=== PATIENT | male | born 1950 | race Caucasian/White ===

== ENCOUNTER → 2016-10-11 | Outpatient (CLI) | payer MEDICARE, BC ==
--- NOTE | 2016-10-11 08:17 | CT ---
EXAMINATION TYPE: CT brain wo/w con DATE OF EXAM: 10/11/2016 COMPARISON: NONE HISTORY: Patient complains of syncopal episode. CT DLP: 1835.7 mGycm Automated exposure control for dose reduction was used. CONTRAST: CT scan of the head is performed without and with IV Contrast, patient injected with 100 mL of Omnipa que 300. FINDINGS: There is no evidence for acute intracranial hemorrhage, acute ischemic change, mass, mass effect, mid line shift, or extra-axial fluid collection. No hydrocephalus. Graham-white matter differentiation is m aintained. There is no abnormal enhancing mass. Dural venous sinuses are patent. There are mild patchy subcortical and deep white matter hypodensities. 9 mm partially calcified scalp lesion along the right frontal region. The globes are intact. Minimal mucosal thickening within the ethmoid air cells are well-pneumatized. IMPRESSION: 1. No acute intracranial abnormality seen. 2. No enhancing intracranial lesions. Mild changes of chronic small vessel ischemic disease. 3. A 9 mm partially calcified right frontal scalp lesion probably represents a sebaceous cyst. Correl ate clinically.
== END | disposition home or self-care (01) ==
LOC: RADCTMAIN 06:51
PROVIDERS: ATTEND Family Medicine
DX: I67.82 Cerebral ischemia (principal); G93.89 Other specified disorders of brain; E16.2 Hypoglycemia, unspecified
CPT/HCPCS: 70470; Q9967

== ENCOUNTER 2017-05-15 11:46 | Emergency (ER) | payer MEDICARE, BC ==
[2017-05-15 11:54] VITALS: TEMP 97.7
--- NOTE | 2017-05-15 12:48 | ED ---
General Adult HPI - General Chief complaint: Abdominal Pain Stated complaint: Constipation Time Seen by Provider: 05/15/17 12:16 Source: patient, EMS, RN notes reviewed Mode of arrival: EMS Limitations: no limitations - History of Present Illness Initial comments: Patient 66-year-old male who presents emergency room today by EMS, the chief complaint of constipation. Does admit that last bowel movement was 3 days ago was harder. Patient states he did take 2 stool softeners earlier today. EMS did give him some fentanyl for pain. He admits that he was feeling some pain and pressure to the rectum. Patient denies any other complaints. I did see the patient after he had immediate to the commode as he is feeling the urge that he went to have a bowel movement. Patient was able to have large bowel movement and is not having any pain at this time. Patient denies any other complaints or any other symptoms. States he feels much better and is completely symptom-free. Patient denies any recent fever, chills, shortness of breath, chest pain, back pain, nausea or vomiting, numbness or tingling, dysuria or hematuria, diarrhea, headaches or visual changes, or any other complaints. - Related Data Allergies Allergy/AdvReac Type Severity Reaction Status Date / Time No Known Allergies Allergy Verified 05/15/17 11:54 Review of Systems ROS Statement: Those systems with pertinent positive or pertinent negative responses have been documented in the HPI. ROS Other: All systems not noted in ROS Statement are negative. 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 Eye: Pupils are equal, round and reactive to light, extra-ocular movements are intact. No nystagmus. There is normal conjunctiva bilaterally. No signs of icterus. Ears, nose, mouth and throat: There are moist mucous membranes and no oral lesions. Neck: The neck is supple, there is no tenderness or JVD. Cardiovascular: There is a regular rate and rhythm. No murmur, rub or gallop is appreciated. Respiratory: Lungs are clear to auscultation, respirations are non-labored, breath sounds are equal. No wheezes, stridor, rales, or rhonchi. Gastrointestinal: Soft, non-distended, non-tender abdomen without masses or organomegaly noted. There is no rebound or guarding present. No CVA tenderness. Musculoskeletal: Normal ROM, no tenderness. Strength 5/5. Sensation intact. Pulses equal bilaterally 2+. Neurological: A&O x 3. CN II-XII intact, There are no obvious motor or sensory deficits. Coordination appears grossly intact. Speech is normal. Skin: Skin is warm and dry and no rashes or lesions are noted. Psychiatric: Cooperative, appropriate mood & affect, normal judgment. Limitations: no limitations Course Vital Signs 05/15/17 11:48 Temperature 97.7 F Pulse Rate 83 Respiratory 24 Rate Blood Pressure 144/84 O2 Sat by Pulse 93 L Oximetry Medical Decision Making - Medical Decision Making Patient was able have bowel movement here in emergency room. Patient denies any complaints at this time. States feels much better. Discharged home. Disposition Clinical Impression: Abdominal pain Disposition: HOME SELF-CARE Condition: Good Instructions: Constipation (ED) Additional Instructions: Please use stool softener as needed. Please follow-up family doctor return to emergency room for any other concerns. Referrals: None,Stated [Primary Care Provider] - 1-2 days Time of Disposition: 12:48
[2017-05-15 13:08] VITALS: BP 130/77; PULSE 87; RESP 18
== END 2017-05-15 13:08 | disposition home or self-care (01) ==
LOC: EC 11:46
DX: R10.9 Unspecified abdominal pain (principal); Z87.891 Personal history of nicotine dependence; Z79.01 Long term (current) use of anticoagulants
CPT/HCPCS: 99284

== ENCOUNTER 2017-10-08 14:42 | Emergency (ER) | payer MEDICARE, BC ==
--- NOTE | 2017-10-08 17:27 | ED ---
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 His concern possible clot is visiting nurse said that her swelling and she is concerned for this possibility. No trauma. No history of gout. Does have history of bilateral pedal edema. He reports that he is immobile and uses a Edward lift to change physicians from bed to chair. He normally does have his chair changing positions rapidly days that he keeps his feet elevated. He does have to use a CPAP machine at all times. Also is complaining of some ear pain and thinks that he may be irritated the ear canal while removing wax. - Related Data Home Medications Medication Instructions Recorded Confirmed Albuterol Sulfate [Proair Hfa] 1 - 2 puff INHALATION RT-Q6H PRN 05/15/17 Apixaban [Eliquis] 5 mg PO Q12H 05/15/17 10/08/17 Bisacodyl [Dulcolax] 15 mg PO DAILY PRN 05/15/17 10/08/17 Carvedilol [Coreg] 3.125 mg PO BID 05/15/17 10/08/17 Furosemide [Lasix] 20 mg PO DAILY 05/15/17 10/08/17 Insulin Glargine,Hum.rec.anlog 30 unit SQ HS 05/15/17 10/08/17 [Lantus Solostar] Insulin NPH Hum/Reg Insulin Hm See Protocol SQ AC-TID 05/15/17 10/08/17 [humuLIN 70/30 Kwikpen] Lisinopril [Zestril] 5 mg PO DAILY 05/15/17 10/08/17 Tiotropium [place] [Spiriva 2 spray INHALATION RT-DAILY 05/15/17 10/08/17 Respimat] Vits A,C,E/Lutein/Minerals 1 tab PO DAILY 05/15/17 10/08/17 [Ocuvite with Lutein Tablet] metFORMIN HCL [metFORMIN HCL ER] 1,000 mg PO BID 05/15/17 10/08/17 Allergies Allergy/AdvReac Type Severity Reaction Status Date / Time No Known Allergies Allergy Verified 10/08/17 18:03 Review of Systems ROS Statement: Those systems with pertinent positive or pertinent negative responses have been documented in the HPI. ROS Other: All systems not noted in ROS Statement are negative. 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 No distress. In his. Her left and it is wheelchair. He was wearing a CPAP machine. General: Well appearing, well nourished, in no distress. Oriented x 3, normal mood and affect . Ambulating without difficulty. Skin: Good turgor, no rash, unusual bruising or prominent lesions Hair: Normal texture and distribution. HEENT: Head: Normocephalic, atraumatic, no visible or palpable masses, depressions, or scaring. Eyes: Visual acuity intact, conjunctiva clear, sclera non-icteric, EOM intact, PERRL. Ears: EACs full of cerumen. Unable to identify TM. Nose: No external lesions, mucosa non-inflamed, septum and turbinates normal Mouth: Mucous membranes moist, no mucosal lesions. Teeth/Gums: No obvious caries or periodontal disease. No gingival inflammation or significant resorption. Pharynx: Mucosa non-inflamed, no tonsillar hypertrophy or exudate Neck: Supple, without lesions, bruits, or adenopathy, thyroid non-enlarged and non-tender Heart: No cardiomegaly or thrills; regular rate and rhythm, no murmur or gallop Lungs: Clear to auscultation and percussion Abdomen: Bowel sounds normal, no tenderness, organomegaly, masses, or hernia Extremities: She has bilateral pedal edema. Full range of motion in the toes and ankle. He does report tenderness over the medial malleolus. Musculoskeletal: Normal gait and station. No misalignment, asymmetry, crepitation, defects, tenderness, masses, effusions, decreased range of motion, instability, atrophy or abnormal strength or tone in the head, neck, spine, ribs , pelvis or extremities. Neurologic: CN 2-12 normal. Sensation to pain, touch, and proprioception normal. DTRs normal in upper and lower extremities. No pathologic reflexes. Limitations: no limitations Course Vital Signs 10/08/17 10/08/17 15:09 19:18 Temperature 98.5 F 97 F L Pulse Rate 82 72 Respiratory 24 20 Rate Blood Pressure 128/64 124/74 O2 Sat by Pulse 96 96 Oximetry Medical Decision Making - Medical Decision Making 58-year-old male. Alert and oriented. No significant distress. Concerned possibly about chronic right leg. He is immobile has to squarely. Patient does have some tightness over the right medial malleolus. He does have bilateral pedal edema likely dependent from sitting in his chair. Doesn't complains of ear cerumen impaction. I did use croup with the ear curet. There is some irritation. We'll put the Patient on Cipro drops for the ears for concern for possibility of future otitis externa. Discussed using deep breath drops and saline rinse to remove the wax in the future. - Radiology Data Radiology results: report reviewed US is negative for DVT. Disposition Clinical Impression: Bilateral impacted cerumen, Right ankle pain, Cerumen impaction, Bilateral edema of lower extremity Disposition: HOME SELF-CARE Condition: Good Instructions: Leg Edema (ED) Additional Instructions: He can take Motrin for pain. Keep the legs up and elevated. Use the drops in both ears from the abrasion in the ear canal. He can also purchase Debrox drops and places in her ear to help remove the cerumen in 3 days. Return to the emergency department if any alarming signs or symptoms occur. Follow-up with primary care provider. Is patient prescribed a controlled substance at d/c from ED?: No When asked, does pt state using other controlled substances?: No If prescribed controlled substance>3 days was MAPS reviewed?: No If opioid is for acute pain is fill amount 7 days or less?: No If Rx opioid, was Start Talking consent form obtained?: No Referrals: Mono Slaughter MD [Primary Care Provider] - 1-2 days Time of Disposition: 19:05
[2017-10-08] MEDS ORDERED: CIPROFLOXACIN 0.3% OPHTH SOLN 5 ML BTL BOTH EYES STA (17:28)
--- NOTE | 2017-10-08 18:58 | US ---
EXAMINATION TYPE: US venous doppler duplex LE RT DATE OF EXAM: 10/08/2017 4:27 PM COMPARISON: NONE CLINICAL HISTORY: 66-year-old male Pain. Right ankle pain. Hx of blood clots in bilateral legs and P E. On blood thinners. SIDE PERFORMED: Right TECHNIQUE: The lower extremity deep venous system is examined utilizing real time linear array sonog tiburcio with graded compression, doppler sonography and color-flow sonography. VESSELS IMAGED: External Iliac Vein (EIV) Common Femoral Vein Deep Femoral Vein Greater Saphenous Vein * Femoral Vein Popliteal Vein Small Saphenous Vein * Proximal Calf Veins (* superficial vessels) Right Leg: Negative for DVT. Edema noted posterior knee. IMPRESSION: No evidence for DVT within the right lower extremity imaged from the groin to the upper calf. The son ographer notes some subcutaneous edema posterior to the knee.
[2017-10-08 19:19] VITALS: BP 124/74; PULSE 72; RESP 20; TEMP 97
== END 2017-10-08 19:19 | disposition home or self-care (01) ==
LOC: EC 14:42
DX: R60.0 Localized edema (principal); M25.571 Pain in right ankle and joints of right foot; H61.23 Impacted cerumen, bilateral; E11.9 Type 2 diabetes mellitus without complications; E78.5 Hyperlipidemia, unspecified; I10 Essential (primary) hypertension; Z87.891 Personal history of nicotine dependence; Z99.89 Dependence on other enabling machines and devices; Z79.01 Long term (current) use of anticoagulants; Z79.4 Long term (current) use of insulin; Z79.899 Other long term (current) drug therapy
CPT/HCPCS: 99284

== ENCOUNTER 2018-03-11 08:56 | Emergency (ER) | payer MEDICARE, BC ==
[2018-03-11 09:06] VITALS: TEMP 97.4
[2018-03-11] MEDS ORDERED: IPRATROPIUM-ALBUTEROL 3 ML NEB INHALATION STA (09:13)
--- NOTE | 2018-03-11 09:13 | ED ---
SOB HPI - General Chief Complaint: Shortness of Breath Stated Complaint: ALEX Time Seen by Provider: 03/11/18 09:06 Source: patient, family, EMS, old records reviewed Mode of arrival: EMS Limitations: physical limitation - History of Present Illness Initial Comments: This is a 67-year-old male the ER for evaluation. Patient does have significant medical history significant for Ban Gehrig's disease, ALS. Patient comes in with shortness of breath and weakness while trying to eat his breakfast this morning he usually can separate from his CPAP, BiPAP in between meals, patient's brought in by EMS for shortness of breath and left was running lower than normal today. He denies any pain. Electrolyte level and is overall weakness has been increased lately. No fevers, no pain MD Complaint: shortness of breath, cough -: hour(s) Radiation: other (No pain) Severity: mild Severity scale (1-10): 6 Consistency: constant Improves With: oxygen (An BiPAP) Worsens With: exertion, movement Associated Symptoms: denies other symptoms - Related Data Home Medications Medication Instructions Recorded Confirmed Albuterol Sulfate [Proair Hfa] 1 - 2 puff INHALATION RT-Q6H PRN 05/15/17 Apixaban [Eliquis] 5 mg PO Q12H 05/15/17 03/11/18 Bisacodyl [Dulcolax] 5 - 10 mg PO DAILY PRN 05/15/17 03/11/18 Carvedilol [Coreg] 3.125 mg PO BID 05/15/17 03/11/18 Furosemide [Lasix] 20 mg PO DAILY 05/15/17 03/11/18 Insulin Glargine,Hum.rec.anlog 34 unit SQ HS 05/15/17 03/11/18 [Lantus Solostar] Insulin NPH Hum/Reg Insulin Hm See Protocol SQ AC-TID 05/15/17 03/11/18 [humuLIN 70/30 Kwikpen] Lisinopril [Zestril] 5 mg PO DAILY 05/15/17 03/11/18 Tiotropium [place] [Spiriva 2 spray INHALATION RT-DAILY@1200 05/15/17 03/11/18 Respimat] Vits A,C,E/Lutein/Minerals 1 tab PO DAILY 05/15/17 03/11/18 [Ocuvite with Lutein Tablet] metFORMIN HCL [metFORMIN HCL ER] 1,000 mg PO BID 05/15/17 03/11/18 Riluzole [Rilutek] 50 mg PO BID@1100,2100 03/11/18 03/11/18 Allergies Allergy/AdvReac Type Severity Reaction Status Date / Time No Known Allergies Allergy Verified 03/11/18 12:34 Review of Systems ROS Statement: Those systems with pertinent positive or pertinent negative responses have been documented in the HPI. ROS Other: All systems not noted in ROS Statement are negative. 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 Absent: scleral icterus, conjunctival injection, periorbital swelling ENT exam: Present: normal exam, mucous membranes moist Neck exam: Present: normal inspection. Absent: tenderness, meningismus, lymphadenopathy Respiratory exam: Present: normal lung sounds bilaterally. Absent: respiratory distress, wheezes, rales, rhonchi, stridor Cardiovascular Exam: Present: regular rate, normal rhythm, normal heart sounds. Absent: systolic murmur, diastolic murmur, rubs, gallop, clicks GI/Abdominal exam: Present: soft, normal bowel sounds. Absent: distended, tenderness, guarding, rebound, rigid Extremities exam: Present: normal inspection, full ROM, normal capillary refill. Absent: tenderness, pedal edema, joint swelling, calf tenderness Back exam: Present: normal inspection Neurological exam: Present: alert, oriented X3, CN II-XII intact Psychiatric exam: Present: normal affect, normal mood Skin exam: Present: warm, dry, intact, normal color. Absent: rash Course Vital Signs 03/11/18 03/11/18 03/11/18 09:00 09:01 09:06 Temperature 97.4 F L Pulse Rate 85 Respiratory 36 H 34 H Rate Blood Pressure 168/100 O2 Sat by Pulse 98 95 Oximetry 03/11/18 03/11/18 03/11/18 09:24 09:35 10:00 Temperature Pulse Rate 78 83 80 Respiratory Rate Blood Pressure 148/93 O2 Sat by Pulse 97 Oximetry 03/11/18 03/11/18 03/11/18 11:00 12:08 13:19 Temperature Pulse Rate 81 80 76 Respiratory 18 30 H Rate Blood Pressure 150/93 140/92 140/89 O2 Sat by Pulse 97 93 L 95 Oximetry 03/11/18 03/11/18 14:16 14:37 Temperature Pulse Rate 80 80 Respiratory 18 18 Rate Blood Pressure 155/94 162/95 O2 Sat by Pulse 96 95 Oximetry - Reevaluation(s) Reevaluation #1: 03/11/18 12:22 Medical record is reviewed Reevaluation #2: 03/11/18 12:22 Brad patient and family at length, 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 We will type try to titrate patient's oxygen down and further evaluate Reevaluation #3: 03/11/18 15:57 Patient on trials on BiPAP active BiPAP on room air and then a final traumas own at home BiPAP. Patient's trials are successful oxygen normal patient has no complaints will be discharged home Medical Decision Making - Medical Decision Making 67 male the ER with severe ALS, patient unable to breathe at times, quite came in with her shortness of breath that happened at home while eating, patient without his BiPAP during meals. Usually halfhearted time, patient here in the emergency room feeling well, patient can be discharged home - Lab Data Result diagrams: 03/11/18 09:56 03/11/18 09:56 Lab Results 03/11/18 03/11/18 03/11/18 Range/Units 09:56 09:56 09:56 WBC 7.4 (3.8-10.6) k/uL RBC 4.50 (4.30-5.90) m/uL Hgb 13.0 (13.0-17.5) gm/dL Hct 40.8 (39.0-53.0) % MCV 90.6 (80.0-100.0) fL MCH 28.8 (25.0-35.0) pg MCHC 31.8 (31.0-37.0) g/dL RDW 13.1 (11.5-15.5) % Plt Count 307 (150-450) k/uL Neutrophils % 77 % Lymphocytes % 15 % Monocytes % 5 % Eosinophils % 3 % Basophils % 1 % Neutrophils # 5.7 (1.3-7.7) k/uL Lymphocytes # 1.1 (1.0-4.8) k/uL Monocytes # 0.3 (0-1.0) k/uL Eosinophils # 0.2 (0-0.7) k/uL Basophils # 0.0 (0-0.2) k/uL PT 10.4 (9.0-12.0) sec INR 1.1 (<1.2) APTT 27.0 (22.0-30.0) sec Sodium 135 L (137-145) mmol/L Potassium 4.7 (3.5-5.1) mmol/L Chloride 95 L (98-107) mmol/L Carbon Dioxide 31 H (22-30) mmol/L Anion Gap 9 mmol/L BUN 23 H (9-20) mg/dL Creatinine 0.40 L (0.66-1.25) mg/dL Est GFR (CKD-EPI)AfAm >90 (>60 ml/min/1.73 sqM) Est GFR (CKD-EPI)NonAf >90 (>60 ml/min/1.73 sqM) Glucose 112 H (74-99) mg/dL Calcium 9.4 (8.4-10.2) mg/dL Magnesium 1.5 L (1.6-2.3) mg/dL Total Bilirubin 0.7 (0.2-1.3) mg/dL AST 22 (17-59) U/L ALT 29 (21-72) U/L Alkaline Phosphatase 68 (38-126) U/L Total Creatine Kinase (55-170) U/L CK-MB (CK-2) (0.0-2.4) ng/mL CK-MB (CK-2) Rel Index Troponin I (0.000-0.034) ng/mL NT-Pro-B Natriuret Pep pg/mL Total Protein 6.9 (6.3-8.2) g/dL Albumin 3.9 (3.5-5.0) g/dL 03/11/18 03/11/18 Range/Units 09:56 09:56 WBC (3.8-10.6) k/uL RBC (4.30-5.90) m/uL Hgb (13.0-17.5) gm/dL Hct (39.0-53.0) % MCV (80.0-100.0) fL MCH (25.0-35.0) pg MCHC (31.0-37.0) g/dL RDW (11.5-15.5) % Plt Count (150-450) k/uL Neutrophils % % Lymphocytes % % Monocytes % % Eosinophils % % Basophils % % Neutrophils # (1.3-7.7) k/uL Lymphocytes # (1.0-4.8) k/uL Monocytes # (0-1.0) k/uL Eosinophils # (0-0.7) k/uL Basophils # (0-0.2) k/uL PT (9.0-12.0) sec INR (<1.2) APTT (22.0-30.0) sec Sodium (137-145) mmol/L Potassium (3.5-5.1) mmol/L Chloride (98-107) mmol/L Carbon Dioxide (22-30) mmol/L Anion Gap mmol/L BUN (9-20) mg/dL Creatinine (0.66-1.25) mg/dL Est GFR (CKD-EPI)AfAm (>60 ml/min/1.73 sqM) Est GFR (CKD-EPI)NonAf (>60 ml/min/1.73 sqM) Glucose (74-99) mg/dL Calcium (8.4-10.2) mg/dL Magnesium (1.6-2.3) mg/dL Total Bilirubin (0.2-1.3) mg/dL AST (17-59) U/L ALT (21-72) U/L Alkaline Phosphatase (38-126) U/L Total Creatine Kinase 55 (55-170) U/L CK-MB (CK-2) 2.1 (0.0-2.4) ng/mL CK-MB (CK-2) Rel Index 3.8 Troponin I <0.012 (0.000-0.034) ng/mL NT-Pro-B Natriuret Pep 54 pg/mL Total Protein (6.3-8.2) g/dL Albumin (3.5-5.0) g/dL - EKG Data -: EKG Interpreted by Me (EKG shows drugs rhythm rate of 82, QRS 70, QTc 418) - Radiology Data Radiology results: report reviewed (Chest x-rays negative for acute disease), image reviewed Disposition Clinical Impression: Weakness Disposition: HOME SELF-CARE Instructions: Weakness (ED) Is patient prescribed a controlled substance at d/c from ED?: No Referrals: Mono Slaughter MD [Primary Care Provider] - 1-2 days
--- NOTE | 2018-03-11 09:59 | XR ---
EXAMINATION TYPE: XR chest 1V portable DATE OF EXAM: 03/11/2018 COMPARISON: NONE HISTORY: Difficulty in breathing. TECHNIQUE: Single AP portable frontal upright view of the chest is obtained. FINDINGS: There is elevated left hemidiaphragm with left basilar opacity. There is patchy right basi lar opacity The cardiac silhouette size is difficult to assess presumed mildly enlarged. The osseo us structures are intact. IMPRESSION: Elevated left hemidiaphragm and suspected cardiomegaly with left greater than right biba silar atelectasis and/or infiltrate.
[2018-03-11 10:26] LABS: INR 1.1 (<1.2); Prothrombin Time 10.4 sec (9.0-12.0)
[2018-03-11 10:28] LABS: ALT 29 U/L (21-72); AST 22 U/L (17-59); Albumin 3.9 g/dL (3.5-5.0); Alkaline Phosphatase 68 U/L (38-126); Anion Gap 9 mmol/L; Basophils % (A) 1 %; Blood Urea Nitrogen 23 mg/dL (9-20); Calcium 9.4 mg/dL (8.4-10.2); Carbon Dioxide 31 mmol/L (22-30); Chloride 95 mmol/L (98-107); Eosinophils # (A) 0.2 k/uL (0-0.7); Eosinophils % (A) 3 %; Glucose 112 mg/dL (74-99); HCT 40.8 % (39.0-53.0); Lymphocytes # (A) 1.1 k/uL (1.0-4.8); Lymphocytes % (A) 15 %; MCH 28.8 pg (25.0-35.0); MCHC 31.8 g/dL (31.0-37.0); MCV 90.6 fL (80.0-100.0); Magnesium 1.5 mg/dL (1.6-2.3); Mean Platelet Volume 6.9; Monocytes # (A) 0.3 k/uL (0-1.0); Monocytes % (A) 5 %; Neutrophils # (A) 5.7 k/uL (1.3-7.7); Neutrophils % (A) 77 %; Platelet Count 307 k/uL (150-450); Potassium 4.7 mmol/L (3.5-5.1); RDW 13.1 % (11.5-15.5); Sodium 135 mmol/L (137-145); Total Bilirubin 0.7 mg/dL (0.2-1.3); Total Protein 6.9 g/dL (6.3-8.2); WBC 7.4 k/uL (3.8-10.6)
[2018-03-11 10:41] LABS: Creatine Kinase 55 U/L (55-170)
[2018-03-11 10:54] LABS: Creatine Kinase MB 2.1 ng/mL (0.0-2.4); Troponin I <0.012 ng/mL (0.000-0.034)
[2018-03-11] MEDS: MAGNESIUM SULFATE-D5W PMX 1 GM in DEXTROSE/WATER 1 100ML.BAG IVPB SCH ×2 (12:04→13:09)
[2018-03-11 16:05] VITALS: PULSE 84
[2018-03-11 16:35] LABS: Glucose,Whole Blood 82 mg/dL (75-99)
--- NOTE | 2018-03-11 17:04 | ED ---
Medical Decision Making - Medical Decision Making 67 male who came in the ER with ALS will need to be transferred to [facility] care of his own physicians, patient is failing treatment here in the emergency room and is failing ability to be discharged - Lab Data Result diagrams: 03/11/18 09:56 03/11/18 09:56 Lab Results 03/11/18 03/11/18 03/11/18 Range/Units 09:56 09:56 09:56 WBC 7.4 (3.8-10.6) k/uL RBC 4.50 (4.30-5.90) m/uL Hgb 13.0 (13.0-17.5) gm/dL Hct 40.8 (39.0-53.0) % MCV 90.6 (80.0-100.0) fL MCH 28.8 (25.0-35.0) pg MCHC 31.8 (31.0-37.0) g/dL RDW 13.1 (11.5-15.5) % Plt Count 307 (150-450) k/uL Neutrophils % 77 % Lymphocytes % 15 % Monocytes % 5 % Eosinophils % 3 % Basophils % 1 % Neutrophils # 5.7 (1.3-7.7) k/uL Lymphocytes # 1.1 (1.0-4.8) k/uL Monocytes # 0.3 (0-1.0) k/uL Eosinophils # 0.2 (0-0.7) k/uL Basophils # 0.0 (0-0.2) k/uL PT 10.4 (9.0-12.0) sec INR 1.1 (<1.2) APTT 27.0 (22.0-30.0) sec Sodium 135 L (137-145) mmol/L Potassium 4.7 (3.5-5.1) mmol/L Chloride 95 L (98-107) mmol/L Carbon Dioxide 31 H (22-30) mmol/L Anion Gap 9 mmol/L BUN 23 H (9-20) mg/dL Creatinine 0.40 L (0.66-1.25) mg/dL Est GFR (CKD-EPI)AfAm >90 (>60 ml/min/1.73 sqM) Est GFR (CKD-EPI)NonAf >90 (>60 ml/min/1.73 sqM) Glucose 112 H (74-99) mg/dL POC Glucose (mg/dL) (75-99) mg/dL POC Glu [employer] ID Calcium 9.4 (8.4-10.2) mg/dL Magnesium 1.5 L (1.6-2.3) mg/dL Total Bilirubin 0.7 (0.2-1.3) mg/dL AST 22 (17-59) U/L ALT 29 (21-72) U/L Alkaline Phosphatase 68 (38-126) U/L Total Creatine Kinase (55-170) U/L CK-MB (CK-2) (0.0-2.4) ng/mL CK-MB (CK-2) Rel Index Troponin I (0.000-0.034) ng/mL NT-Pro-B Natriuret Pep pg/mL Total Protein 6.9 (6.3-8.2) g/dL Albumin 3.9 (3.5-5.0) g/dL 03/11/18 03/11/18 03/11/18 Range/Units 09:56 09:56 16:29 WBC (3.8-10.6) k/uL RBC (4.30-5.90) m/uL Hgb (13.0-17.5) gm/dL Hct (39.0-53.0) % MCV (80.0-100.0) fL MCH (25.0-35.0) pg MCHC (31.0-37.0) g/dL RDW (11.5-15.5) % Plt Count (150-450) k/uL Neutrophils % % Lymphocytes % % Monocytes % % Eosinophils % % Basophils % % Neutrophils # (1.3-7.7) k/uL Lymphocytes # (1.0-4.8) k/uL Monocytes # (0-1.0) k/uL Eosinophils # (0-0.7) k/uL Basophils # (0-0.2) k/uL PT (9.0-12.0) sec INR (<1.2) APTT (22.0-30.0) sec Sodium (137-145) mmol/L Potassium (3.5-5.1) mmol/L Chloride (98-107) mmol/L Carbon Dioxide (22-30) mmol/L Anion Gap mmol/L BUN (9-20) mg/dL Creatinine (0.66-1.25) mg/dL Est GFR (CKD-EPI)AfAm (>60 ml/min/1.73 sqM) Est GFR (CKD-EPI)NonAf (>60 ml/min/1.73 sqM) Glucose (74-99) mg/dL POC Glucose (mg/dL) 82 (75-99) mg/dL POC Glu [employer] ID July Calcium (8.4-10.2) mg/dL Magnesium (1.6-2.3) mg/dL Total Bilirubin (0.2-1.3) mg/dL AST (17-59) U/L ALT (21-72) U/L Alkaline Phosphatase (38-126) U/L Total Creatine Kinase 55 (55-170) U/L CK-MB (CK-2) 2.1 (0.0-2.4) ng/mL CK-MB (CK-2) Rel Index 3.8 Troponin I <0.012 (0.000-0.034) ng/mL NT-Pro-B Natriuret Pep 54 pg/mL Total Protein (6.3-8.2) g/dL Albumin (3.5-5.0) g/dL Disposition Clinical Impression: Weakness, Acute respiratory failure Disposition: OTHER INSTITUTION NOT DEFINED Instructions: Weakness (ED) Is patient prescribed a controlled substance at d/c from ED?: No Referrals: Mono Slaughter MD [Primary Care Provider] - 1-2 days - Out of Hospital Transfer - Req. Specs Out of Hospital Transfer - Requested Specifics: Other Emergency Center ([facility])
[2018-03-11] MEDS ORDERED: DEXTROSE 5%-0.2% NACL 1,000 ML IV SCH (17:15)
[2018-03-11 17:23] VITALS: BP 130/86; RESP 30
== END 2018-03-11 18:00 | disposition short-term general hospital (02) ==
LOC: EC 08:56
DX: J96.00 Acute respiratory failure, unspecified whether with hypoxia or hypercapnia (principal); R53.1 Weakness; G12.21 Amyotrophic lateral sclerosis; I10 Essential (primary) hypertension; E11.9 Type 2 diabetes mellitus without complications; Z87.891 Personal history of nicotine dependence; Z79.4 Long term (current) use of insulin; Z79.01 Long term (current) use of anticoagulants; Z79.899 Other long term (current) drug therapy; Z86.2 Personal history of diseases of the blood and blood-forming organs and certain disorders involving the immune mechanism; Z99.81 Dependence on supplemental oxygen; Z99.89 Dependence on other enabling machines and devices; Z96.0 Presence of urogenital implants
CPT/HCPCS: 36415; 94660; 94640; 93005; 83880; 80053; 82550; 82553; 83735; 84484; 85025; 85610; 85730; 71045; 99285; 96365; 96366; J3475